=== PATIENT | female | born 1975 | race Caucasian/White ===

== ENCOUNTER 2016-07-18 15:58 | Emergency (ER) | payer OTHER ==
[~2016-07-18] VITALS: Ht 170.2 cm; Wt 62.7 kg
[2016-07-18 16:00] VITALS: BP 97/64; PULSE 62; RESP 20; O2SAT 96
[2016-07-18 16:42] LABS: BASOPHILS % (AUTO) 0.2 % (0-3); EOSINOPHILS % (AUTO) 0.6 % (0-5); MONOCYTES % (AUTO) 4.5 % (4-12); Mean Corpuscular Hemoglobin 30.8 pg (27.0-35.0); Mean Corpuscular Volume 87.4 fL (81-100); NEUTROPHILS % (AUTO) 67.1 % (40-74); Platelet Count 256 bil/L (150-400)
[2016-07-18 16:53] LABS: Magnesium 1.9 mg/dL (1.6-2.6)
--- NOTE | 2016-07-18 17:01 | ED.REPORT ---
HPI-Abd Pain F 40 and Over Date of Service Jul 18, 2016 ED Provider: Dr. Edison Bolivar M.D. A healthy 41 year old female presents to the ED with LLQ abdominal pain onset suddenly one hour prior to arrival. The pain is described as "the worst of her life, similar to childbirth," exacerbated by nothing and without radiation. The patient also reports recent productive cough with green sputum, nasal congestion , and shortness of breath onset ten days ago. She denies fever, chest pain, vomiting, diarrhea, or other symptoms. The patient is currently . Nursing Notes Stated Complaint: LOWER LEFT ABDOMINAL PAIN Chief Complaint: Female Abdominal Pain Nursing Notes Reviewed: Yes ([employer], [employer] not reconciled) Allergies: Coded Allergies: No Known Allergies (Unverified , 07/18/16) Scheduled PRN oxyCODONE-Acetaminophen 5-325 mg (oxyCODONE-Acetaminophen 5-325 mg) 1 Each Tablet 1-2 TAB PO Q4H PRN PRN For Pain General Time Seen by MD: 16:59 Chief Complaint Abdominal pain Hx Obtained From: Patient Arrived By: Walk-in Sudden in Onset?: Yes Onset Occurred: 1 - 4 hours ago Symptom Duration: Since onset Location: : LLQ Quality: Painful Severity: Current: Severe Severity: Maximum: Severe Associated with: Denies: Fever, Vomiting Pertinent Negative: Exacerbated by nothing, Relieved by nothing Recent Healthcare: No recent doctor visit Similar Sx Previous: No Past Medical History Past Medical History None reported Past Surgical History Hemithyroidectomy Family History Kidney stones Smoking History Unknown if Ever Smoker Social History Other Social History: Good social support Ambulatory Status Independent Review of Systems Constitutional: Denies: Fever Respiratory: Reports: Prod cough, green, Shortness of breath Cardiovascular: Denies: Chest pain GI: Reports: Abdominal pain (LLQ), Denies: Diarrhea, Vomiting Complete sys rev & neg: except as marked. Ears / Nose / Throat: Reports: Nasal congestion Physical Exam Vital Signs Vital Signs (First) Date Time Temp Pulse Resp B/P Pulse Ox O2 Delivery O2 Flow Rate FiO2 07/18/16 16:00 36.2 62 20 97/64 96 Room Air Initial VS: Reviewed, Vital signs abnormal Head / Eyes: Atraumatic, Normocephalic ENT: Conjunctiva normal, No scleral icterus Skin: Warm, Dry, No cyanosis Neurologic: Alert, Oriented, Nonfocal Psychiatric: Mood/affect normal, Behavior normal, Normal thought content General/Constitutional: Awake, Alert Behavior: Positive: Uncooperative Respiratory / Chest: Breath sounds NL, Breath sounds = bilat, No respiratory distress Cardiovascular: Heart rate NL, Regular rhythm, Heart sounds NL Abdomen: Soft, Non-tender Interpretation & Diagnostics CT KUB W/O CONTRAST: IMPRESSION: 1. No nephro or ureterolithiasis. No bladder calculi. 2. 40 mm left adnexal focus of low attenuation most suggestive of adnexal cyst. Dictated by: Shivani Velasquez M.D. on 07/18/2016 at 18:03 US PELVIC SONOGRAM + TRANSVAGINAL SONOGRAM: IMPRESSION: 1. No visualized evidence of torsion. 2. Prominent left ovarian cyst. Dictated by: Shivani Velasquez M.D. on 07/18/2016 at 20:41 Lab Results Interpretation Result Diagram: 07/18/16 1622 07/18/16 1622 Test 07/18/16 16:22 07/18/16 17:08 White Blood Count 10.8th/mm3 (3.8-10.1) Red Blood Count 4.78mil/mm3 (3.90-5.20) Hemoglobin 14.7g/dL (12.0-15.6) Hematocrit 41.8% (35.0-46.0) Mean Corpuscular Volume 87.4fL (81-100) Mean Corpuscular Hemoglobin 30.8pg (27.0-35.0) Mean Corpuscular Hemoglobin Concent 35.2% (32.0-37.0) Red Cell Distribution Width 11.6% (12.3-15.4) Platelet Count 256bil/L (150-400) Neutrophils (%) (Auto) 67.1% (40-74) Lymphocytes (%) (Auto) 27.4% (14-46) Monocytes (%) (Auto) 4.5% (4-12) Eosinophils (%) (Auto) 0.6% (0-5) Basophils (%) (Auto) 0.2% (0-3) Sodium Level 132mEq/L (134-144) Potassium Level 4.0mEq/L (3.5-5.2) Chloride Level 94mEq/L (97-108) Carbon Dioxide Level 23mmol/L (18-29) Blood Urea Nitrogen 15mg/dL (6-24) Creatinine 0.71mg/dL (0.57-1.00) Estimat Glomerular Filtration Rate 129mL/min (>59) Glucose Level 104mg/dL (60-99) Lactic Acid Level 2.1mmol/L (0.4-2.0) Calcium Level 9.3mg/dL (8.5-10.1) Magnesium Level 1.9mg/dL (1.6-2.6) Total Bilirubin 0.6mg/dL (0.0-1.2) Aspartate Amino Transf (AST/SGOT) 21U/L (0-50) Alanine Aminotransferase (ALT/SGPT) 13U/L (0-32) Alkaline Phosphatase 62U/L (25-150) Total Protein 7.2g/dL (6.4-8.4) Albumin 4.5g/dL (3.4-5.0) Lipase 30U/L (13-60) Hold Tran Top Tube Received (Received) Urine Color Yellow (YELLOW) Urine Appearance Clear (CLEAR,HAZY) Urine pH 5.5 (5.0-8.0) Urine Specific [place] 1.015 (1.003-1.035) Urine Protein Negativemg/dL (NEG,TRACE) Urine Glucose (UA) Negativemg/dL (NEGATIVE) Urine Ketones Tracemg/dL (NEGATIVE) Urine Occult Blood Negative (NEGATIVE) Urine Nitrite Negative (NEGATIVE) Urine Bilirubin Negative (NEGATIVE) Urine Urobilinogen Normalmg/dL (NORMAL) Urine Leukocyte Esterase Negative (NEGATIVE) Urine RBC 0-2/hpf (0-2) Urine WBC 0-5/hpf (0-5) Urine Epithelial Cells Moderate/hpf (NONE-MOD) Urine Crystals None seen (NONE SEEN) Urine Bacteria Few/hpf (NONE-FEW) Urine Hyaline Casts None/lpf (NONE) Urine Granular Casts None seen (NONE SEEN) Urine Waxy Casts None seen (NONE SEEN) Urine Red Blood Cell Casts None seen (NONE SEEN) Urine White Blood Cell Casts None seen (NONE SEEN) Urine Mucus None seen (None Seen) Urine Trichomonas None seen (NONE SEEN) Urine Yeast None (NONE SEEN) Urinalysis Comment None Urine Culture Reflexed Not indicated Lab Results Interpretation: CBC normal CMP normal UA negative, GC pending negative Lactic acid marginally elevated X-Ray Chest Interpretation Chest Xray Interpretation: IMPRESSION: No acute pulmonary process. Dictated by: Shivani Velasquez M.D. on 07/18/2016 at 18:06 View: Portable, 1 view Interpretation / Wet Read by: Interpret - ED physician Re-Eval/Medical Decision Med Decision/Clinical Course This is a 41-year-old female presents with acute onset of left lower abdominal pain that she says is "worse than labor". She reports unable to find a position of comfort, point to her left lower quadrant, reports the pain is extreme. He had no fevers chills dysuria. She is breast feeding her 18-month- old, she denies being , and has no additional complaints. She has no prior history of similar symptoms, there is a family history of kidney stones. On exam the patient is in severe pain, but the abdomen is soft and nontender. Titrated pain medicines were administered, and did cause some sedation and demonstrated the patient be sensitive, but the patient continued to complain of pain medication. She will appear colicky discomfort, unable to sit still in the gurney, and my initial suspicion was the possibility of ureterolithiasis. was confirmed negative, urine was negative, a CT KUB was obtained-this revealed no stone or GI pathology, but did notified identify a 4 cm left ovarian cyst. Patient was still having uncontrollable pain initially, and this sudden onset and severity of pain raise concern for the possible ovarian torsion ; ultrasound was obtained, but demonstrated only a simple cyst without evidence of torsion. Given the clinical history, ongoing pain, consulted gynecology for the input, they came and saw the patient. They did not identify a clear gynecological cause of the pain were not convinced that the ovarian cyst was the cause. Did not see any sign for surgical exploration. The patient did improve. At this point a definitive, or dangerous causes not been identified. The patient is being discharged to home on a course of when necessary ibuprofen and oxycodone when necessary, and routine precautions were carefully reviewed. Patient to follow the PCP the next few days. She is to return if worsening symptoms, or uncontrolled symptoms occur. Source of Hx: Old records Re-Evaluation/Progress #1: Time of Eval: 18:33 Patient Status: Condition improved Re-Evaluation/Progress Note: Patient's pain has improved but not resolved. Discussed with patient CT results and plan for US. Re-Evaluation/Progress #2: Time of Eval: 19:56 Patient Status: Condition improved Re-Evaluation/Progress Note: Patient's pain is now at a 6/10. Discussed with patient US results and plan for evaluation by Dr. Abad. Re-Evaluation/Progress #3: Time of Eval: 22:03 Patient Status: Condition improved Re-Evaluation/Progress Note: Patient is feeling better. Discussed with patient x-ray, CT, and lab results, diagnosis, and plan for discharge. Follow-up and return to the ER instructions given. Patient agrees with plan for care and all questions were addressed. Consultation : Referral / Consult Name: Alejandro Abad MD Call Returned at: 19:49 Log Yard Manager: Will see patient, Agrees with eval, Agrees with plan Note: CT MANAGER: Discussed patient's case Differential Diagnosis: Positive: Acute abdominal pain, Ovarian cyst, Negative: Cervicitis, Cholangitis, Cholecystitis, Cholelithiasis, Ectopic preg ruptured, Ectopic , Esophageal rupture, Gun shot wound abdomen, Intrauterine , Ovarian torsion, Peritonitis, Pyelonephritis, Stab wound abdomen, Trauma, abdominal Counseled Regarding: Diagnosis, Lab results, Need for follow-up, When/why to return to ED Discharge & Departure Primary Impression: Abdominal pain Abdominal location: left lower quadrant Qualified Code: R10.32 - Left lower quadrant pain Additional Impression: Left ovarian cyst Disposition: Home Discharge Condition All VS Reviewed: Yes Condition: Improved Additional Instructions: 1. CT scan was normal and did not reveal signs of a kidney stone, or GI pathology-but he did reveal a left ovarian cyst. 2. The severity of your pain, there was concern for the possibility of an ovarian torsion, she underwent an ultrasound of the ovary which confirms a simple cyst-but did not reveal any signs of actual torsion or vascular compromise. 3. Due to the severity of your pain, were seen by the cosmetics supervisor (surgeon) Dr. Abad also did not find signs of torsion or surgical condition. 4. Symptoms may indeed be due to the ovarian cyst, but even this is not definite-however 18 to risk causing the pain has not been identified on any imaging or laboratory tests. 5. The next episode while small amount of time-his symptoms often improve with time. 6. Take ibuprofen 400-800 mg 3 times a day for pain. 7. If needed for more severe pain take oxycodone 5/325 one to 2 tabs up to every 4-6 hours. Note: His medication does contain a narcotic and causes drowsiness. No driving for at least 4 hours after taking. 8. You should be seen and rechecked if symptoms not clearly improving over the next several days. 9. Return to the emergency department if new or worsening symptoms-increased pain, fever, etc. Referrals: Agnieszka Ortega MD (PCP) Scribe Attestation Portions of this note were transcribed by Viola Palacios. I, Dr. Bolivar, personally performed the history, physical exam, and medical decision-making; I reviewed and confirmed the accuracy of the information in the transcribed note. Signed by: Juan Farnsworth, 07/18/2016, 22:35 copies to: Agnieszka Ortega MD, Matthew F MD Jul 18, 2016 17:01 VIOLA PALACIOS Jul 18, 2016 17:18
[2016-07-18] MEDS ORDERED: Ondansetron 2 mg/mL 2 mL Inj IVPUSH ONE (17:05)
[2016-07-18] MEDS ORDERED: 0.9% Sodium Chloride 1,000 ML IV ONE (17:05)
[2016-07-18] MEDS: HYDROmorphone 0.5 mg/0.5 mL iSecure Syringe IVPUSH PRN ×3 (17:22→18:53)
[2016-07-18 17:35] LABS: APPEARANCE,URINE CLEAR (CLEAR,HAZY); COLOR,URINE YELLOW (YELLOW); OCCULT BLOOD,URINE NEGATIVE (NEGATIVE); PH,URINE 5.5 (5.0-8.0); UROBILINOGEN,URINE NORMAL (NORMAL)
[2016-07-18 18:07] VITALS: BP 94/54; PULSE 66; RESP 15; O2SAT 95
--- NOTE | 2016-07-18 18:07 | DRSVH ---
PROCEDURE: CT KUB ([id number]) INDICATIONS: L Flank pain TECHNIQUE: Noncontrast 5 mm thick sections acquired from the diaphragms to the symphysis. 5 mm thick coronal an d sagittal reformats were then performed. For radiation dose reduction, the following was used: aut omated exposure control, adjustment of mA and/or kV according to patient size. COMPARISON: None. FINDINGS: Image quality: Excellent. Lung bases: Lung bases are clear. Heart size is normal. Urinary system: Both kidneys are normal in size. No kidney stones. No hydronephrosis or perinephri c fat stranding. Both ureters appear non-dilated throughout their expected courses. Bladder wall th ickness is normal; no calcified bladder stones. Other solid organs: Liver is mildly enlarged with steatosis. The spleen is normal in size. Gallblad hailey is unremarkable. Pancreas is normal in contours. No adrenal nodules. Peritoneum and bowel: Unenhanced bowel loops demonstrate normal wall thickness and caliber. No free fluid or air. Nodes and vessels: No retroperitoneal or mesenteric adenopathy by size criteria. Aorta and inferior vena cava are normal in caliber. Abdominal wall: No ventral hernias. Pelvis: No free pelvic fluid. No inguinal hernias or adenopathy. Left lower pelvic rounded focus o f fluid attenuation is present measuring 40 mm in transverse dimension. Bones: No suspicious bony lesions. No vertebral body compression fractures. IMPRESSION: 1. No nephro or ureterolithiasis. No bladder calculi. 2. 40 mm left adnexal focus of low attenuation most suggestive of adnexal cyst. Dictated by: Shivani Velasquez M.D. on 07/18/2016 at 18:03 Approved by: Shivani Velasquez M.D. on 07/18/2016 at 18:05
--- NOTE | 2016-07-18 18:08 | DRSVH ---
PROCEDURE: X-RAY CHEST ONE VIEW, PORTABLE ([id number]) INDICATIONS: cough TECHNIQUE: One view of the chest was acquired. COMPARISON: [facility], CR, XR CHEST 2VW, 07/14/2016, 13:16. FINDINGS: Surgical changes and devices: None. Lungs and pleura: No pleural effusions or pneumothorax. Lungs are clear. Mediastinum: Mediastinal contours appear normal. Heart size is normal. Bones and chest wall: No suspicious bony lesions. Overlying soft tissues appear unremarkable. IMPRESSION: No acute pulmonary process. Dictated by: Shivani Velasquez M.D. on 07/18/2016 at 18:06 Approved by: Shivani Velasquez M.D. on 07/18/2016 at 18:07
[2016-07-18] MEDS ORDERED: Norepineph 8,000 mCg/250 mL NS 8,000 MCG in IV Premix 1 EACH IV SCH (20:13)
--- NOTE | 2016-07-18 20:44 | DRSVH ---
PROCEDURE: US PELVIC SONOGRAM + TRANSVAGINAL SONOGRAM INDICATIONS: pelvic pain ro torsion TECHNIQUE: Real-time scanning was performed of the pelvic organs, with image documentation. Additional endovagi nal scanning was necessary due to incomplete visualization of the adnexal and endometrial structures by transabdominal scanning. COMPARISON: None. FINDINGS: Transabdominal scanning: Limited scanning through the kidneys shows no hydronephrosis. No pathologi c free abdominal or pelvic fluid. Endovaginal scanning: Uterus: Uterus is normal in size at 6.3 x 2.0 x 4.0 cm. The endometrium measures 2.9 mm in combined thickness. Ovaries: The right ovary measures 27 x 15 x 15 mm. Blood flow is within normal limits. The left ovary measures 40 x 34 x 49 mm. There is a focal area of hypoechogenicity measuring approximately 40 x 30 x 37 mm. Blood flow is within normal limits. IMPRESSION: 1. No visualized evidence of torsion. 2. Prominent left ovarian cyst. Dictated by: Shivani Velasquez M.D. on 07/18/2016 at 20:41 Approved by: Shivani Velasquez M.D. on 07/18/2016 at 20:42
[2016-07-18] MEDS ORDERED: oxyCODONE-Acetamin 5-325 mg Tablet PO ONE (21:30)
[2016-07-18] MEDS ORDERED: _Ondansetron ODT 4 mg Tablet PO PRN (22:10)
[2016-07-18] MEDS ORDERED: _oxyCODONE/APAP 5-325 mg Tablet PO PRN (22:10)
[2016-07-18] MEDS ORDERED: OXYC1TAB24 PO (22:18)
[2016-07-18 23:29] VITALS: BP 92/60; PULSE 76; RESP 18
--- NOTE | 2016-07-19 00:57 | ER ---
[address] [address] EMERGENCY DEPARTMENT REPORT PATIENT: EDUARD VILLAFANA : 1975 MR#: [id number] ADMIT: 07/18/2016 JOB ID: [id number] DATE OF SERVICE: 07/18/2016 CHIEF COMPLAINT: Left lower quadrant pain. HISTORY OF PRESENT ILLNESS: The patient is a 41-year-old, 3, para 1-0-2-1. LMP was March 23, 2014. Patient is currently breast-feeding her [id number] child. Denied any sexual activity for the last two years. Complaining of left lower quadrant pain that had happened three times in the last two months. Today was the last episode. Started at 3 p.m., was very severe, associated with some nausea. Patient denied any vomiting. Denied any diarrhea, constipation, dysuria, frequency, fevers, chills. Pain is 8/10 intensity, intermittent, sharp, decreased with pain medications in the emergency department. No radiation. No aggravating factors. PAST OBSTETRICAL HISTORY: 1. One full-term ended with spontaneous vaginal delivery in 2014. 2. Two elective terminations of at 7 weeks and 6 weeks. PAST GYNECOLOGIC HISTORY: No history of abnormal Pap smears. No history of STDs. PAST MEDICAL HISTORY: Thyroid nodules. PAST SURGICAL HISTORY: Hemithyroidectomy for benign thyroid nodule. ALLERGIES: No known drug allergies. MEDICATIONS: None. SOCIAL HISTORY: Denied any alcohol consumption. Denied any drugs of abuse. Denied any cigarette smoking. PHYSICAL EXAMINATION: Patient is alert, oriented x3. Vital signs: 94/54 for blood pressure. Respirations are 16. Pulse is 66. Pulse ox is 95% on room air. Temperature 36.2 degrees centigrade. Heart: Regular rate and rhythm. Positive S1, S2. Lungs: Clear to auscultation bilaterally. Lower extremities: No calf tenderness appreciated bilaterally. Sterile speculum exam showed normal cervix. Cervical cultures and wet mount collected. Bimanual examination showed no cervical motion tenderness. Retroverted uterus. Nontender. No right adnexal tenderness or masses palpated. No left adnexal masses palpated. Mild left adnexal tenderness on deep palpation. Ultrasound showed uterus 6.3 x 2 x 4 cm with endometrial stripe of 2.9 mm. Right ovary 2.7 x 1.5 x 1.5 cm. Left ovary 4 x 3.4 x 4.9 cm, with a left ovarian cyst measuring 4 x 3 x 3.7 cm. Positive flow to both ovaries. No torsion by ultrasound. Labs: H and H is 14.7 and 41.8, platelets of 256, white blood count 7.8. Sodium is 132, potassium 4, chloride 94, carbon dioxide 23, BUN is 15, creatinine is 0.71, glucose 104, AST 21, ALT 13, lipase is 30. UA is negative. UPT is negative. ASSESSMENT AND PLAN: Patient is a 41-year-old, 3, para 1-0-2-1, presented to the emergency department with left lower quadrant pain that per patient had been happening before. This is the third episode in the last two months. Patient's clinical exam is benign, does not support picture of torsion or pelvic inflammatory disease. Ultrasound ruled out ovarian torsion. The patient's pain is mostly not related to an acute gynecologic condition. Discussed the findings with the patient and with the emergency department physician. Recommended to the patient to follow up with a prison psychiatrist within the next week or two, and I gave her the address and information for [facility]. LIZBETH
== END 2016-07-18 23:10 | disposition home or self-care (01) ==
LOC: SED 15:58
DX: R10.32 Left lower quadrant pain (principal); N83.202 Unspecified ovarian cyst, left side; R05 Cough; R09.81 Nasal congestion; R06.02 Shortness of breath
CPT/HCPCS: 36415; 71010; 74176; 76830; 76856; 80053; 81000; 81025; 83605; 83690; 83735; 85025; 87491; 87591; 96361; 96374; 96375; 96376; 99285; J1170; J2405; J7030